=== PATIENT | female | born 1995 | race Caucasian/White ===

== ENCOUNTER 2022-08-14 12:58 | Inpatient (IN) | payer BC ==
[2022-08-14 14:25] VITALS: BMI 33.2
[2022-08-14] MEDS ORDERED: Ondansetron PF 4 MG/2 ML Vial ONE (14:30)
[2022-08-14] MEDS ORDERED: Ondansetron PF 4 MG/2 ML Vial IVP SCH (14:30)
[2022-08-14 15:33] LABS: #Monocytes 0.8 10x3/uL (0.0-1.1); #Neutrophils 12.4 10x3/uL (1.5-8.4); %Basophils 0.1 % (0.0-2.0); %Eosinophils 0.1 % (0.0-6.0); %Lymphocytes 4.6 % (18.0-47.0); %Monocytes 5.9 % (0.0-10.0); %Neutrophils 88.7 % (40.0-75.0); Hemoglobin 10.3 g/dL (12.0-15.5); Mean Corpuscular HGB CONC 31.9 g/dL (32.0-36.0); Mean Corpuscular Hemoglobin 24.6 pg (27.0-33.0); Mean Corpuscular Volume 77.3 fl (81.6-98.3); Mean Platelet Volume 9.6 fl (7.4-10.4); Platelet Count 193 10x3/uL (150-450); RBC Distribution Width 14.7 % (11.5-14.5); Red Blood Cell (RBC) Count 4.18 10x6/uL (3.90-5.03)
[2022-08-14 15:48] LABS: Bilirubin Neg (Negative); Blood, Urine Negative (Negative); Clarity Sl. Cloudy (Clear); Glucose, Urine (Dipstick) Normal (Negative); Ketone, Urine 150 mg/dL (Negative); Leukocyte 25 (Negative); Nitrite Negative (Negative); Protein, Urine (Dipstick) 30 mg/dl (Neg-Trace); Specific Gravity, Urine 1.015 (1.005-1.030); Urobilinogen Normal mg/dL (Less than 2); pH, Urine 6.5 (5.0-9.0)
[2022-08-14 15:51] LABS: Urine Culture Reflex No No
[2022-08-14 15:55] LABS: ALT (SGPT) 9 U/L (8-55); AST (SGOT) 17 U/L (5-34); Albumin 3.2 g/dL (3.5-5.0); Alkaline Phosphatase 101 U/L (40-110); Anion Gap 14 mmol/L (10-20); BUN (Urea Nitrogen) 8 mg/dL (7.0-18.7); Bilirubin, Total 0.4 mg/dL (0.2-1.2); Calc. Creatinine Clearance 203 mL/min (70-130); Calcium 8.5 mg/dL (7.8-10.44); Carbon Dioxide 19 mmol/L (22-29); Chloride 107 mmol/L (98-107); Estimated GFR 126; Globulin 3.1 g/dL (2.4-3.5); Glucose 81 mg/dL (70-105); Lipase 17 U/L (8-78); Potassium 3.6 mmol/L (3.5-5.1); Protein, Total 6.3 g/dL (6.0-8.3); Sodium 136 mmol/L (136-145)
[2022-08-14 15:56] LABS: Bacteria/HPF 2+ HPF (None Seen); Renal Epithelial 0-3 HPF (None Seen)
[2022-08-14 15:57] LABS: Other Microscopic Description SEE COMMENTS
[2022-08-14] MEDS ORDERED: cefTRIAXone\\ROCEPHIN 1 GM in Sodium Chloride 0.9% 100 ML IVPB SCH (16:30)
[2022-08-14] MEDS: Acetaminophen 325 MG TAB PO PRN (16:59)
[2022-08-14] MEDS ORDERED: Terbutaline Sulfate 1 MG/ML VIAL ONE (17:37)
[2022-08-14] MEDS ORDERED: Famotidine/PF 20 mg/2ml Vial SLOW IVP PRN (17:44)
[2022-08-14] MEDS ORDERED: Terbutaline Sulfate 1 MG/ML VIAL SC SCH ×2 (17:45→19:30)
[2022-08-14] MEDS ORDERED: Morphine 4 MG/ML VIAL SLOW IVP PRN (17:47)
[2022-08-14 18:21] LABS: FFN Internal QC Analyzer PASS (PASS); FFN Internal QC Cassette PASS (PASS); Fetal Fibronectin Negative (Negative)
[2022-08-14] MEDS: Lactated Ringer's 1,000 ML IV SCH (21:50)
[2022-08-15] MEDS ORDERED: hydrALAZINE 20 MG/ML VIAL SLOW IVP PRN (00:46)
[2022-08-15] MEDS ORDERED: Acetaminophen 500 MG TAB PO PRN (00:46)
[2022-08-15] MEDS ORDERED: Ondansetron PF 4 MG/2 ML Vial IVP PRN (00:46)
[2022-08-15 02:11] LABS: Hemoglobin 8.8 g/dL (12.0-15.5); Mean Corpuscular HGB CONC 32.2 g/dL (32.0-36.0); Mean Corpuscular Hemoglobin 24.9 pg (27.0-33.0); Mean Corpuscular Volume 77.3 fl (81.6-98.3); Platelet Count 170 10x3/uL (150-450); RBC Distribution Width 14.6 % (11.5-14.5); Red Blood Cell (RBC) Count 3.53 10x6/uL (3.90-5.03); White Blood Cell (WBC) Count 10.2 10x3/uL (3.5-10.5)
[2022-08-15 02:41] LABS: ALT (SGPT) 9 U/L (8-55); AST (SGOT) 12 U/L (5-34); Albumin 2.7 g/dL (3.5-5.0); Alkaline Phosphatase 86 U/L (40-110); Anion Gap 14 mmol/L (10-20); BUN (Urea Nitrogen) 5 mg/dL (7.0-18.7); Bilirubin, Total 0.3 mg/dL (0.2-1.2); Calc. Creatinine Clearance 210 mL/min (70-130); Calcium 7.7 mg/dL (7.8-10.44); Carbon Dioxide 17 mmol/L (22-29); Chloride 109 mmol/L (98-107); Estimated GFR 127; Globulin 2.4 g/dL (2.4-3.5); Glucose 114 mg/dL (70-105); Potassium 3.2 mmol/L (3.5-5.1); Protein, Total 5.1 g/dL (6.0-8.3); Sodium 137 mmol/L (136-145)
[2022-08-15 02:52] LABS: Syphilis Antibody Nonreactive (Nonreactive); Syphilis Antibody Index 0.03 S/CO (<1.00 Non-Reactive)
[2022-08-15 02:53] LABS: HBSAg Index 0.15 S/CO (0-0.99); Hep B Surf Ag Non-Reactive S/CO (NonReactive)
[2022-08-15 03:02] LABS: SARS-CoV-2 NAA Rapid Test Not Detected (NotDetected)
[2022-08-15] MEDS: Lactated Ringer's 1,000 ML IV SCH ×3 (07:16→08:58)
[2022-08-15] MEDS: Acetaminophen 325 MG TAB PO PRN ×2 (08:56→14:35)
[2022-08-15] MEDS ORDERED: cefTRIAXone\\ROCEPHIN 1 GM in Sodium Chloride 0.9% 100 ML IVPB SCH (16:30)
[2022-08-16] MEDS: Lactated Ringer's 1,000 ML IV SCH ×3 (08:22→08:25)
[2022-08-16] MEDS: Acetaminophen 325 MG TAB PO PRN (11:54)
[2022-08-16] MEDS ORDERED: Iron Sucrose Complex 500 MG in Sodium Chloride 0.9% 250 ML 250 ML IVPB SCH (12:45)
[2022-08-16] MEDS ORDERED: Acetaminophen 500 MG TAB PO SCH (12:45)
[2022-08-16 18:48] VITALS: BP 122/65; TEMP 98.5
== END 2022-08-16 18:00 | disposition home or self-care (01) | DRG 833 ==
LOC: CSHLD/OP 12:58 → CSHLD 21:34 → OBSVTOIN 08-15 00:46 → CSHANTE 08-15 01:40
PROVIDERS: ADMIT Student in an Organized Health Care Education/Training Program; ATTEND Student in an Organized Health Care Education/Training Program
DX: O99.891 Other specified diseases and conditions complicating pregnancy (principal); Z3A.31 31 weeks gestation of pregnancy; O30.043 Twin pregnancy, dichorionic/diamniotic, third trimester; E86.0 Dehydration; O99.283 Endocrine, nutritional and metabolic diseases complicating pregnancy, third trimester; Z20.822 Contact with and (suspected) exposure to COVID-19; Z87.440 Personal history of urinary (tract) infections; Z87.442 Personal history of urinary calculi; Z79.899 Other long term (current) drug therapy; N20.0 Calculus of kidney; D50.9 Iron deficiency anemia, unspecified; O99.013 Anemia complicating pregnancy, third trimester
CPT/HCPCS: 36415; 76770; 76819; 80053; 81001; 82731; 83690; 85025; 85027; 86780; 86850; 86900; 86901; 87086; 87340; 99285; J0696; J1756; J2270; J2405; J3105; J3490; J7050; J7120; U0002

== ENCOUNTER 2022-08-18 20:15 | Inpatient (IN) | payer BC ==
[2022-08-18] MEDS ORDERED: hydrALAZINE 20 MG/ML VIAL SLOW IVP PRN ×2 (20:43→21:41)
[2022-08-18] MEDS ORDERED: diphenhydrAMINE 25 MG CAP PO SCH (21:00)
[2022-08-18 21:09] VITALS: BMI 32.8
[2022-08-18] MEDS ORDERED: NIFEdipine XL 30 MG TAB PO SCH (21:15)
[2022-08-18] MEDS: Clindamycin 150 MG CAP PO SCH (21:23)
[2022-08-18] MEDS ORDERED: Betamet Acet/Betamet Na Ph 30 MG/5 ML VIAL IM SCH (21:30)
[2022-08-18] MEDS ORDERED: Magnesium Sulfate 20 gm/500 ml 20 GM/500 ML BAG ONE (21:32)
[2022-08-18] MEDS ORDERED: Betamet Acet/Betamet Na Ph 30 MG/5 ML VIAL ONE (21:32)
[2022-08-18] MEDS ORDERED: Ondansetron PF 4 MG/2 ML Vial IVP PRN (21:41)
[2022-08-18] MEDS ORDERED: Promethazine HCl 25 MG/ML VIAL IM PRN (21:41)
[2022-08-18] MEDS ORDERED: Lidocaine 1% (PF) 30 ML VIAL SC PRN (21:41)
[2022-08-18] MEDS ORDERED: Magnesium Sulfate 20 gm/500 ml 20 GM/500 ML BAG IVPB SCH (21:45)
[2022-08-18] MEDS ORDERED: Lactated Ringer's 1,000 ML IV SCH (21:45)
[2022-08-19] MEDS: Clindamycin 150 MG CAP PO SCH ×3 (06:51→21:38)
[2022-08-19] MEDS: NIFEdipine 10 MG CAP PO PRN ×2 (16:53→22:57)
[2022-08-19 16:54] LABS: ALT (SGPT) 17 U/L (8-55); AST (SGOT) 19 U/L (5-34); Alkaline Phosphatase 111 U/L (40-110); Anion Gap 15 mmol/L (10-20); BUN (Urea Nitrogen) 6 mg/dL (7.0-18.7); Bilirubin, Total 0.2 mg/dL (0.2-1.2); Calc. Creatinine Clearance 188 mL/min (70-130); Calcium 7.8 mg/dL (7.8-10.44); Carbon Dioxide 16 mmol/L (22-29); Chloride 108 mmol/L (98-107); Estimated GFR 124; Globulin 2.6 g/dL (2.4-3.5); Glucose 148 mg/dL (70-105); Potassium 3.3 mmol/L (3.5-5.1); Protein, Total 5.6 g/dL (6.0-8.3); Sodium 136 mmol/L (136-145)
[2022-08-19] MEDS ORDERED: Potassium Bicarbonate/Cit Ac 20 MEQ TAB PO SCH (17:15)
[2022-08-19] MEDS ORDERED: cefTRIAXone\\ROCEPHIN 2 GM in Sodium Chloride 0.9% 100 ML IVPB SCH ×2 (17:15→21:00)
[2022-08-19 17:32] LABS: #Monocytes 1.5 10x3/uL (0.0-1.1); #Neutrophils 11.7 10x3/uL (1.5-8.4); %Basophils 0.1 % (0.0-2.0); %Eosinophils 0.1 % (0.0-6.0); %Lymphocytes 13.1 % (18.0-47.0); %Monocytes 9.4 % (0.0-10.0); %Neutrophils 75.6 % (40.0-75.0); Hemoglobin 9.6 g/dL (12.0-15.5); Mean Corpuscular Hemoglobin 24.7 pg (27.0-33.0); Mean Corpuscular Volume 77.3 fl (81.6-98.3); Mean Platelet Volume 9.3 fl (7.4-10.4); Platelet Count 214 10x3/uL (150-450); RBC Distribution Width 15.4 % (11.5-14.5); Red Blood Cell (RBC) Count 3.88 10x6/uL (3.90-5.03); White Blood Cell (WBC) Count 15.5 10x3/uL (3.5-10.5)
[2022-08-19] MEDS: Acetaminophen 325 MG TAB PO PRN (19:58)
[2022-08-19] MEDS: Enoxaparin Sodium 100 MG/ML SYRINGE SC SCH (20:00)
[2022-08-19] MEDS: Betamet Acet/Betamet Na Ph 30 MG/5 ML VIAL IM SCH (21:44)
[2022-08-20] MEDS: NIFEdipine 10 MG CAP PO PRN (04:47)
[2022-08-20 05:01] LABS: #Monocytes 0.5 10x3/uL (0.0-1.1); #Neutrophils 10.2 10x3/uL (1.5-8.4); %Basophils 0.2 % (0.0-2.0); %Lymphocytes 13.9 % (18.0-47.0); %Monocytes 3.8 % (0.0-10.0); %Neutrophils 80.2 % (40.0-75.0); Hemoglobin 9.6 g/dL (12.0-15.5); Mean Corpuscular Hemoglobin 24.3 pg (27.0-33.0); Mean Corpuscular Volume 78.5 fl (81.6-98.3); Platelet Count 215 10x3/uL (150-450); RBC Distribution Width 15.4 % (11.5-14.5); Red Blood Cell (RBC) Count 3.95 10x6/uL (3.90-5.03); White Blood Cell (WBC) Count 12.8 10x3/uL (3.5-10.5)
[2022-08-20 05:12] LABS: ALT (SGPT) 19 U/L (8-55); AST (SGOT) 23 U/L (5-34); Alkaline Phosphatase 101 U/L (40-110); Anion Gap 14 mmol/L (10-20); BUN (Urea Nitrogen) 7 mg/dL (7.0-18.7); Bilirubin, Total 0.1 mg/dL (0.2-1.2); Calc. Creatinine Clearance 194 mL/min (70-130); Calcium 7.9 mg/dL (7.8-10.44); Carbon Dioxide 19 mmol/L (22-29); Chloride 110 mmol/L (98-107); Estimated GFR 125; Globulin 3.1 g/dL (2.4-3.5); Glucose 130 mg/dL (70-105); Magnesium 3.5 mg/dL (1.6-2.6); Potassium 3.7 mmol/L (3.5-5.1); Protein, Total 6.1 g/dL (6.0-8.3); Sodium 139 mmol/L (136-145)
[2022-08-20] MEDS: Clindamycin 150 MG CAP PO SCH ×3 (06:29→21:08)
[2022-08-20] MEDS: Acetaminophen 325 MG TAB PO PRN (07:25)
[2022-08-20] MEDS: Enoxaparin Sodium 100 MG/ML SYRINGE SC SCH ×2 (07:47→20:41)
[2022-08-20] MEDS ORDERED: Iopamidol 370 76% 100 ML VIAL ONE (11:06)
[2022-08-20] MEDS ORDERED: hydrOXYzine 25 MG TAB PO PRN (16:15)
[2022-08-20] MEDS ORDERED: cefTRIAXone\\ROCEPHIN 2 GM in Sodium Chloride 0.9% 100 ML IVPB SCH (18:00)
[2022-08-20] MEDS ORDERED: diphenhydrAMINE 25 MG CAP PO PRN (18:51)
[2022-08-21] MEDS ORDERED: Lactated Ringer's 1,000 ML IV SCH (00:15)
[2022-08-21] MEDS: NIFEdipine 10 MG CAP PO PRN (00:16)
[2022-08-21] MEDS: Betamet Acet/Betamet Na Ph 30 MG/5 ML VIAL IM SCH (01:51)
[2022-08-21] MEDS: Clindamycin 150 MG CAP PO SCH ×2 (05:11→13:50)
[2022-08-21] MEDS: Enoxaparin Sodium 100 MG/ML SYRINGE SC SCH (08:12)
[2022-08-21 11:34] VITALS: BP 117/64; TEMP 98.8
== END 2022-08-21 15:30 | disposition home or self-care (01) | DRG 831 ==
LOC: CSHLD/OP 20:15 → CSHLD 21:42 → UNDOADMIN 08-19 01:49 → CSHANTE 08-20 17:40
PROVIDERS: ADMIT Student in an Organized Health Care Education/Training Program; ATTEND Student in an Organized Health Care Education/Training Program
DX: O98.813 Other maternal infectious and parasitic diseases complicating pregnancy, third trimester (principal); O22.33 Deep phlebothrombosis in pregnancy, third trimester; E87.20 Acidosis, unspecified; L03.113 Cellulitis of right upper limb; I82.621 Acute embolism and thrombosis of deep veins of right upper extremity; O22.23 Superficial thrombophlebitis in pregnancy, third trimester; Z3A.28 28 weeks gestation of pregnancy; Z90.89 Acquired absence of other organs; O30.043 Twin pregnancy, dichorionic/diamniotic, third trimester; E87.6 Hypokalemia; O99.283 Endocrine, nutritional and metabolic diseases complicating pregnancy, third trimester; Z88.2 Allergy status to sulfonamides; Z88.8 Allergy status to other drugs, medicaments and biological substances; I80.02 Phlebitis and thrombophlebitis of superficial vessels of left lower extremity
CPT/HCPCS: 36415; 71275; 80053; 83735; 84484; 85025; 93005; 93010; 99285; J0696; J0702; J1650; J3475; J3490; J7120; Q9967

== ENCOUNTER 2022-08-25 22:56 | Emergency (ER) | payer BC ==
[2022-08-26 00:47] LABS: ALT (SGPT) 14 U/L (8-55); AST (SGOT) 16 U/L (5-34); Albumin 3.4 g/dL (3.5-5.0); Alkaline Phosphatase 111 U/L (40-110); Anion Gap 15 mmol/L (10-20); BUN (Urea Nitrogen) 7 mg/dL (7.0-18.7); Bilirubin, Total 0.2 mg/dL (0.2-1.2); Calc. Creatinine Clearance 0 mL/min (70-130); Calcium 9.4 mg/dL (7.8-10.44); Carbon Dioxide 17 mmol/L (22-29); Chloride 107 mmol/L (98-107); Estimated GFR 127; Globulin 3.5 g/dL (2.4-3.5); Glucose 114 mg/dL (70-105); Potassium 3.6 mmol/L (3.5-5.1); Protein, Total 6.9 g/dL (6.0-8.3); Sodium 135 mmol/L (136-145)
[2022-08-26 00:51] LABS: #Eosinphils 0.1 10x3/uL (0.0-0.5); #Monocytes 0.9 10x3/uL (0.0-1.1); #Neutrophils 8.3 10x3/uL (1.5-8.4); %Basophils 0.2 % (0.0-2.0); %Eosinophils 0.9 % (0.0-6.0); %Lymphocytes 24.8 % (18.0-47.0); %Monocytes 7.3 % (0.0-10.0); %Neutrophils 65.1 % (40.0-75.0); Mean Corpuscular HGB CONC 31.6 g/dL (32.0-36.0); Mean Corpuscular Hemoglobin 24.8 pg (27.0-33.0); Mean Corpuscular Volume 78.6 fl (81.6-98.3); Mean Platelet Volume 9.6 fl (7.4-10.4); Platelet Count 207 10x3/uL (150-450); RBC Distribution Width 17.6 % (11.5-14.5); Red Blood Cell (RBC) Count 4.43 10x6/uL (3.90-5.03); White Blood Cell (WBC) Count 12.8 10x3/uL (3.5-10.5)
== END 2022-08-26 02:45 | disposition home or self-care (01) ==
LOC: CSHERS 22:56
DX: O99.891 Other specified diseases and conditions complicating pregnancy (principal); R59.0 Localized enlarged lymph nodes; Z3A.30 30 weeks gestation of pregnancy
CPT/HCPCS: 80053; 83880; 84484; 85025; 93005

== ENCOUNTER 2022-09-08 20:02 | Day surgery (SDC) | payer BC ==
[2022-09-08 20:31] VITALS: BMI 34.0
[2022-09-08] MEDS ORDERED: hydrALAZINE 20 MG/ML VIAL SLOW IVP PRN (21:25)
[2022-09-08] MEDS ORDERED: Promethazine HCl 12.5 MG, Admixture Fee 1 EACH in Sodium Chloride 0.9% 50 ML IVPB PRN (21:26)
[2022-09-08] MEDS ORDERED: Lactated Ringer's 1,000 ML IV SCH (21:45)
[2022-09-08 21:55] LABS: Fetal Membranes Rupture No Membranes Rupture (No Rupture)
[2022-09-08 21:59] LABS: Bilirubin Neg (Negative); Blood, Urine Negative (Negative); CAUTI Indications for Culture Pregnancy; Clarity Clear (Clear); Glucose, Urine (Dipstick) Normal (Negative); Ketone, Urine Negative (Negative); Leukocyte 100 (Negative); Nitrite Negative (Negative); Protein, Urine (Dipstick) 15 mg/dl (Neg-Trace); Urobilinogen Normal mg/dL (Less than 2)
[2022-09-08 22:03] LABS: Urine Culture Reflex Yes Yes
[2022-09-08 22:14] LABS: Bacteria/HPF Rare-Few HPF (None Seen); RBC/HPF 0-3 HPF (0-3); Squamous Epithelial 0-3 HPF (0-3)
[2022-09-08] MEDS ORDERED: CEFAZOLIN 1 GM in Sodium Chloride 0.9% 100 ML IVPB SCH (23:30)
[2022-09-09 01:10] LABS: #Eosinphils 0.1 10x3/uL (0.0-0.5); #Monocytes 0.7 10x3/uL (0.0-1.1); #Neutrophils 5.7 10x3/uL (1.5-8.4); %Basophils 0.3 % (0.0-2.0); %Eosinophils 1.1 % (0.0-6.0); %Lymphocytes 29.2 % (18.0-47.0); %Monocytes 7.4 % (0.0-10.0); %Neutrophils 61.1 % (40.0-75.0); Hemoglobin 10.4 g/dL (12.0-15.5); Mean Corpuscular HGB CONC 32.4 g/dL (32.0-36.0); Mean Corpuscular Hemoglobin 25.3 pg (27.0-33.0); Mean Corpuscular Volume 78.1 fl (81.6-98.3); Mean Platelet Volume 9.8 fl (7.4-10.4); Platelet Count 151 10x3/uL (150-450); RBC Distribution Width 16.7 % (11.5-14.5); Red Blood Cell (RBC) Count 4.11 10x6/uL (3.90-5.03); White Blood Cell (WBC) Count 9.3 10x3/uL (3.5-10.5)
[2022-09-09 01:19] LABS: ALT (SGPT) 8 U/L (8-55); AST (SGOT) 14 U/L (5-34); Albumin 2.8 g/dL (3.5-5.0); Alkaline Phosphatase 113 U/L (40-110); Anion Gap 12 mmol/L (10-20); BUN (Urea Nitrogen) 9 mg/dL (7.0-18.7); Bilirubin, Total 0.3 mg/dL (0.2-1.2); Calc. Creatinine Clearance 218 mL/min (70-130); Calcium 8.7 mg/dL (7.8-10.44); Carbon Dioxide 19 mmol/L (22-29); Chloride 107 mmol/L (98-107); Estimated GFR 127; Globulin 2.9 g/dL (2.4-3.5); Glucose 72 mg/dL (70-105); Potassium 3.7 mmol/L (3.5-5.1); Protein, Total 5.7 g/dL (6.0-8.3); Sodium 134 mmol/L (136-145)
== END 2022-09-09 05:15 | disposition home or self-care (01) ==
LOC: CSHLD/OP 20:02
PROVIDERS: ATTEND Student in an Organized Health Care Education/Training Program
DX: O47.03 False labor before 37 completed weeks of gestation, third trimester (principal); Z3A.36 36 weeks gestation of pregnancy; Z88.2 Allergy status to sulfonamides; Z88.6 Allergy status to analgesic agent; Z91.041 Radiographic dye allergy status
CPT/HCPCS: 36415; 76770; 76810; 80053; 81001; 84112; 85025; 87086; 96360; 96361; 99285; J0690; J2550; J3490

== ENCOUNTER 2022-09-15 12:43 | Day surgery (SDC) | payer BC ==
[2022-09-15 13:30] VITALS: BMI 35.2
[2022-09-15] MEDS ORDERED: hydrALAZINE 20 MG/ML VIAL SLOW IVP PRN (13:31)
[2022-09-15 14:15] LABS: #Eosinphils 0.1 10x3/uL (0.0-0.5); #Monocytes 0.7 10x3/uL (0.0-1.1); #Neutrophils 5.3 10x3/uL (1.5-8.4); %Basophils 0.2 % (0.0-2.0); %Eosinophils 1.3 % (0.0-6.0); %Lymphocytes 24.2 % (18.0-47.0); %Neutrophils 64.5 % (40.0-75.0); Hemoglobin 10.1 g/dL (12.0-15.5); Mean Corpuscular HGB CONC 32.7 g/dL (32.0-36.0); Mean Corpuscular Hemoglobin 25.6 pg (27.0-33.0); Mean Corpuscular Volume 78.2 fl (81.6-98.3); Mean Platelet Volume 10.1 fl (7.4-10.4); Platelet Count 149 10x3/uL (150-450); RBC Distribution Width 16.7 % (11.5-14.5); Red Blood Cell (RBC) Count 3.95 10x6/uL (3.90-5.03); White Blood Cell (WBC) Count 8.2 10x3/uL (3.5-10.5)
[2022-09-15 14:21] LABS: ALT (SGPT) 7 U/L (8-55); AST (SGOT) 17 U/L (5-34); Albumin 2.8 g/dL (3.5-5.0); Alkaline Phosphatase 130 U/L (40-110); Anion Gap 11 mmol/L (10-20); BUN (Urea Nitrogen) 11 mg/dL (7.0-18.7); Bilirubin, Total 0.1 mg/dL (0.2-1.2); Calc. Creatinine Clearance 177 mL/min (70-130); Calcium 8.9 mg/dL (7.8-10.44); Carbon Dioxide 21 mmol/L (22-29); Chloride 108 mmol/L (98-107); Estimated GFR 113; Globulin 2.9 g/dL (2.4-3.5); Glucose 78 mg/dL (70-105); Potassium 4.4 mmol/L (3.5-5.1); Protein, Total 5.7 g/dL (6.0-8.3); Sodium 136 mmol/L (136-145)
[2022-09-15 14:29] LABS: Bilirubin Neg (Negative); Blood, Urine Negative (Negative); CAUTI Indications for Culture Pregnancy; Clarity Clear (Clear); Glucose, Urine (Dipstick) Normal (Negative); Ketone, Urine Negative (Negative); Leukocyte 25 (Negative); Nitrite Negative (Negative); Protein, Urine (Dipstick) Negative (Neg-Trace); Specific Gravity, Urine 1.005 (1.005-1.030); Urobilinogen Normal mg/dL (Less than 2)
[2022-09-15 14:35] LABS: Urine Culture Reflex Yes Yes
[2022-09-15 14:36] LABS: Bacteria/HPF None Seen HPF (None Seen); RBC/HPF 0-3 HPF (0-3); Squamous Epithelial 0-3 HPF (0-3); WBC/HPF 0-3 HPF (0-3)
[2022-09-15 14:39] LABS: Creatinine, Urine 53.31 mg/dL (47-110)
== END 2022-09-15 14:30 | disposition home or self-care (01) ==
LOC: CSHLD/OP 12:43
PROVIDERS: ATTEND Student in an Organized Health Care Education/Training Program
DX: O30.043 Twin pregnancy, dichorionic/diamniotic, third trimester (principal); Z3A.32 32 weeks gestation of pregnancy; O16.3 Unspecified maternal hypertension, third trimester; Z86.718 Personal history of other venous thrombosis and embolism; Z79.01 Long term (current) use of anticoagulants; Z88.2 Allergy status to sulfonamides; Z88.5 Allergy status to narcotic agent; Z88.8 Allergy status to other drugs, medicaments and biological substances; Z98.890 Other specified postprocedural states
CPT/HCPCS: 36415; 80053; 81001; 82570; 84156; 85025; 87086; 99283

== ENCOUNTER 2022-09-19 15:49 | Inpatient (IN) | payer BC ==
[2022-09-19 16:28] VITALS: BMI 35.8
[2022-09-19] MEDS ORDERED: Promethazine HCl 25 MG/ML VIAL IM PRN (16:35)
[2022-09-19] MEDS ORDERED: Zolpidem Tartrate 5 MG TAB PO PRN (16:35)
[2022-09-19] MEDS ORDERED: hydrALAZINE 20 MG/ML VIAL SLOW IVP PRN (16:35)
[2022-09-19] MEDS ORDERED: Docusate 100 MG CAP PO PRN (16:35)
[2022-09-19] MEDS ORDERED: Acetaminophen 500 MG TAB PO PRN (16:35)
[2022-09-19] MEDS ORDERED: Ondansetron PF 4 MG/2 ML Vial IVP PRN (16:35)
[2022-09-19] MEDS ORDERED: Lactated Ringer's 1,000 ML IV SCH (16:45)
[2022-09-19 17:33] LABS: Hemoglobin 10.4 g/dL (12.0-15.5); Mean Corpuscular HGB CONC 31.9 g/dL (32.0-36.0); Mean Corpuscular Hemoglobin 24.7 pg (27.0-33.0); Mean Corpuscular Volume 77.4 fl (81.6-98.3); Mean Platelet Volume 10.4 fl (7.4-10.4); Platelet Count 134 10x3/uL (150-450); Red Blood Cell (RBC) Count 4.21 10x6/uL (3.90-5.03); White Blood Cell (WBC) Count 9.5 10x3/uL (3.5-10.5)
[2022-09-19 17:48] LABS: ALT (SGPT) 9 U/L (8-55); AST (SGOT) 17 U/L (5-34); Albumin 2.8 g/dL (3.5-5.0); Alkaline Phosphatase 151 U/L (40-110); Anion Gap 14 mmol/L (10-20); BUN (Urea Nitrogen) 15 mg/dL (7.0-18.7); Bilirubin, Total 0.2 mg/dL (0.2-1.2); Calc. Creatinine Clearance 208 mL/min (70-130); Calcium 8.6 mg/dL (7.8-10.44); Carbon Dioxide 17 mmol/L (22-29); Chloride 107 mmol/L (98-107); Estimated GFR 124; Globulin 2.7 g/dL (2.4-3.5); Glucose 95 mg/dL (70-105); Potassium 4.1 mmol/L (3.5-5.1); Protein, Total 5.5 g/dL (6.0-8.3); Sodium 134 mmol/L (136-145)
[2022-09-19 18:06] LABS: HBSAg Index 0.16 S/CO (0-0.99); Hep B Surf Ag Non-Reactive S/CO (NonReactive)
[2022-09-19 18:07] LABS: Syphilis Antibody Nonreactive (Nonreactive); Syphilis Antibody Index 0.03 S/CO (<1.00 Non-Reactive)
[2022-09-19 19:43] LABS: Creatinine, Urine 107.1 mg/dL (47-110)
[2022-09-19 20:07] LABS: SARS-CoV-2 NAA Rapid Test Not Detected (NotDetected)
[2022-09-19] MEDS ORDERED: Cyclobenzaprine 10 MG TAB PO PRN (20:25)
[2022-09-19] MEDS ORDERED: Butorphanol Tartrate 1 MG/ML VIAL SLOW IVP PRN (20:25)
[2022-09-19] MEDS ORDERED: busPIRone HCl 5 MG TAB PO SCH (21:00)
[2022-09-20] MEDS ORDERED: Prenatal Vitamin 1 TAB PO SCH (09:00)
[2022-09-20] MEDS ORDERED: Sertraline 100 MG TAB PO SCH (09:00)
== END 2022-09-20 17:05 | disposition home or self-care (01) | DRG 831 ==
LOC: CSHLD 15:49
PROVIDERS: ADMIT Student in an Organized Health Care Education/Training Program; ATTEND Student in an Organized Health Care Education/Training Program
DX: O30.043 Twin pregnancy, dichorionic/diamniotic, third trimester (principal); O22.33 Deep phlebothrombosis in pregnancy, third trimester; I82.629 Acute embolism and thrombosis of deep veins of unspecified upper extremity; O99.343 Other mental disorders complicating pregnancy, third trimester; O40.3XX2 Polyhydramnios, third trimester, fetus 2; F32.A Depression, unspecified; Z98.890 Other specified postprocedural states; Z88.5 Allergy status to narcotic agent; Z88.2 Allergy status to sulfonamides; Z88.8 Allergy status to other drugs, medicaments and biological substances; Z91.09 Other allergy status, other than to drugs and biological substances; Z3A.33 33 weeks gestation of pregnancy; Z20.822 Contact with and (suspected) exposure to COVID-19; O34.211 Maternal care for low transverse scar from previous cesarean delivery; Z79.899 Other long term (current) drug therapy
CPT/HCPCS: 36415; 80053; 82570; 84156; 85027; 86780; 86850; 86900; 86901; 87340; J7120; U0002

== ENCOUNTER 2022-09-22 19:16 | Day surgery (SDC) | payer BC ==
[2022-09-22 20:05] VITALS: BMI 35.5
[2022-09-22] MEDS ORDERED: hydrALAZINE 20 MG/ML VIAL SLOW IVP PRN (20:19)
[2022-09-22 20:50] LABS: Bilirubin Neg (Negative); Blood, Urine 10 (Negative); CAUTI Indications for Culture Pregnancy; Clarity Cloudy (Clear); Glucose, Urine (Dipstick) Normal (Negative); Ketone, Urine 5 mg/dL (Negative); Leukocyte 500 (Negative); Nitrite Positive (Negative); Protein, Urine (Dipstick) 100 mg/dl (Neg-Trace); Specific Gravity, Urine 1.015 (1.005-1.030); Urobilinogen Normal mg/dL (Less than 2); pH, Urine 6.5 (5.0-9.0)
[2022-09-22 20:53] LABS: Urine Culture Reflex Yes Yes
[2022-09-22 20:58] LABS: RBC/HPF 0-3 HPF (0-3); WBC/HPF 21-50 HPF (0-3)
[2022-09-22 20:59] LABS: Bacteria/HPF 3+ HPF (None Seen)
[2022-09-22] MEDS ORDERED: cefTRIAXone\\ROCEPHIN 1 GM VIAL IM SCH (22:00)
== END 2022-09-22 22:16 | disposition home or self-care (01) ==
LOC: CSHLD/OP 19:16
PROVIDERS: ATTEND Student in an Organized Health Care Education/Training Program
DX: O13.3 Gestational [pregnancy-induced] hypertension without significant proteinuria, third trimester (principal); O60.03 Preterm labor without delivery, third trimester; O30.043 Twin pregnancy, dichorionic/diamniotic, third trimester; O24.419 Gestational diabetes mellitus in pregnancy, unspecified control; O99.891 Other specified diseases and conditions complicating pregnancy; R30.0 Dysuria; Z3A.33 33 weeks gestation of pregnancy; O99.013 Anemia complicating pregnancy, third trimester; D64.9 Anemia, unspecified; Z86.718 Personal history of other venous thrombosis and embolism; Z79.01 Long term (current) use of anticoagulants; Z79.899 Other long term (current) drug therapy; Z88.2 Allergy status to sulfonamides; Z88.5 Allergy status to narcotic agent; Z88.8 Allergy status to other drugs, medicaments and biological substances; Z98.890 Other specified postprocedural states
CPT/HCPCS: 81001; 84156; 87077; 87086; 96372; 99283; J0696

== ENCOUNTER 2022-09-25 12:31 | Inpatient (IN) | payer BC ==
[2022-09-25] MEDS ORDERED: Famotidine/PF 20 mg/2ml Vial SLOW IVP PRN (15:17)
[2022-09-25] MEDS ORDERED: Ondansetron PF 4 MG/2 ML Vial IVP PRN (15:17)
[2022-09-25] MEDS ORDERED: Butorphanol Tartrate 1 MG/ML VIAL SLOW IVP PRN (15:17)
[2022-09-25] MEDS ORDERED: Zolpidem Tartrate 5 MG TAB PO PRN (15:17)
[2022-09-25] MEDS ORDERED: Promethazine HCl 25 MG/ML VIAL IM PRN (15:17)
[2022-09-25] MEDS ORDERED: Bicitra 30 ML UDCUP PO PRN (15:17)
[2022-09-25] MEDS ORDERED: hydrALAZINE 20 MG/ML VIAL SLOW IVP PRN ×3 (15:17→15:19)
[2022-09-25] MEDS ORDERED: Labetalol HCl 100 MG/20 ML VIAL SLOW IVP PRN ×2 (15:19)
[2022-09-25] MEDS ORDERED: Lorazepam 2 MG/ML VIAL SLOW IVP PRN (15:19)
[2022-09-25] MEDS ORDERED: Calcium Gluc 4.6 MEQ/10 ML (100 MG/ML) SLOW IVP PRN (15:19)
[2022-09-25 15:27] VITALS: BMI 37.1
[2022-09-25] MEDS ORDERED: Heparin 10,000 UNITS/1 ML VIAL SC SCH (15:30)
[2022-09-25] MEDS ORDERED: CEFAZOLIN 2 GM in Sodium Chloride 0.9% 100 ML IVPB SCH (15:30)
[2022-09-25 16:33] LABS: ALT (SGPT) 10 U/L (8-55); AST (SGOT) 17 U/L (5-34); Albumin 2.6 g/dL (3.5-5.0); Alkaline Phosphatase 149 U/L (40-110); Anion Gap 11 mmol/L (10-20); BUN (Urea Nitrogen) 26 mg/dL (7.0-18.7); Bilirubin, Total 0.1 mg/dL (0.2-1.2); Calc. Creatinine Clearance 187 mL/min (70-130); Calcium 8.1 mg/dL (7.8-10.44); Carbon Dioxide 20 mmol/L (22-29); Chloride 108 mmol/L (98-107); Estimated GFR 113; Globulin 2.9 g/dL (2.4-3.5); Glucose 130 mg/dL (70-105); Potassium 4.1 mmol/L (3.5-5.1); Protein, Total 5.5 g/dL (6.0-8.3); Sodium 135 mmol/L (136-145)
[2022-09-25 16:38] LABS: Hemoglobin 9.7 g/dL (12.0-15.5); Mean Corpuscular HGB CONC 31.9 g/dL (32.0-36.0); Mean Corpuscular Hemoglobin 24.8 pg (27.0-33.0); Mean Corpuscular Volume 77.7 fl (81.6-98.3); Mean Platelet Volume 10.4 fl (7.4-10.4); Platelet Count 139 10x3/uL (150-450); Red Blood Cell (RBC) Count 3.91 10x6/uL (3.90-5.03); White Blood Cell (WBC) Count 8.3 10x3/uL (3.5-10.5)
[2022-09-25 16:52] LABS: HBSAg Index 0.14 S/CO (0-0.99); Hep B Surf Ag Non-Reactive S/CO (NonReactive)
[2022-09-25 16:54] LABS: Syphilis Antibody Nonreactive (Nonreactive); Syphilis Antibody Index 0.04 S/CO (<1.00 Non-Reactive)
[2022-09-25] MEDS: Acetaminophen 500 MG TAB PO PRN (18:48)
[2022-09-25 20:57] LABS: Bilirubin Neg (Negative); Blood, Urine 10 (Negative); Clarity Clear (Clear); Glucose, Urine (Dipstick) Normal (Negative); Ketone, Urine Negative (Negative); Leukocyte 25 (Negative); Nitrite Negative (Negative); Protein, Urine (Dipstick) 500 mg/dl (Neg-Trace); Urobilinogen Normal mg/dL (Less than 2)
[2022-09-25 21:04] LABS: Bacteria/HPF 1+ HPF (None Seen); RBC/HPF 0-3 HPF (0-3); Squamous Epithelial 0-3 HPF (0-3)
[2022-09-26] MEDS ORDERED: Lactated Ringer's 1,000 ML IV SCH (04:45)
[2022-09-26] MEDS: Acetaminophen 500 MG TAB PO PRN (04:48)
[2022-09-26] MEDS ORDERED: Fioricet 325/50/40 mg Tablet PO PRN (04:58)
[2022-09-26 06:09] LABS: INR-International Normal Ratio 0.9; PTT 29.9 sec (22.0-33.0); Prothrombin Time 9.4 sec (9.5-12.1)
[2022-09-26] MEDS ORDERED: CEFAZOLIN 2 GM VIAL ONE (09:39)
[2022-09-26] MEDS ORDERED: Famotidine/PF 20 mg/2ml Vial ONE (09:40)
[2022-09-26] MEDS ORDERED: Fentanyl 100 MCG/2 ML VIAL ONE (11:39)
[2022-09-26] MEDS ORDERED: Oxytocin 10 UNITS/ML VIAL ONE (11:39)
[2022-09-26] MEDS ORDERED: Ondansetron PF 4 MG/2 ML Vial ONE (11:39)
[2022-09-26] MEDS ORDERED: Morphine PF 10 MG/10 ML VIAL ONE (11:39)
[2022-09-26] MEDS ORDERED: Phenylephrine 10 MG/ML VIAL ONE (11:39)
[2022-09-26] MEDS ORDERED: Dexamethasone 4 mg/ml Vial ONE (11:39)
[2022-09-26] MEDS ORDERED: diphenhydrAMINE 50 MG/ML VIAL ONE (13:23)
[2022-09-26] MEDS ORDERED: Magnesium Sulfate 20 gm/500 ml 20 GM/500 ML BAG ONE (13:56)
[2022-09-26] MEDS ORDERED: Misoprostol 200 MCG TAB ONE (13:57)
[2022-09-26] MEDS ORDERED: Butorphanol Tartrate 1 MG/ML VIAL ONE (14:09)
[2022-09-26] MEDS ORDERED: Promethazine HCl 25 MG/ML VIAL IM PRN (14:12)
[2022-09-26] MEDS ORDERED: Naloxone HCl 0.4 mg/ml Vial IVP PRN ×2 (14:12)
[2022-09-26] MEDS ORDERED: HYDROmorphone 2 MG/ML VIAL SLOW IVP PRN (14:12)
[2022-09-26] MEDS ORDERED: Naloxone HCl 0.4 mg/ml Vial IV PRN (14:12)
[2022-09-26] MEDS ORDERED: Ondansetron PF 4 MG/2 ML Vial IVP PRN ×2 (14:12→18:45)
[2022-09-26] MEDS ORDERED: Promethazine HCl 25 MG SUPP PR PRN (14:12)
[2022-09-26] MEDS ORDERED: Meperidine HCl/PF 25 MG/ML VIAL SLOW IVP PRN (14:12)
[2022-09-26] MEDS ORDERED: diphenhydrAMINE 50 MG/ML VIAL IVP PRN (14:12)
[2022-09-26] MEDS ORDERED: Ondansetron HCl/PF 4 MG/2 ML Vial IVP PRN (14:12)
[2022-09-26] MEDS ORDERED: Moisturizing Cream (Eucerin) 113 GM JAR TOP PRN (14:12)
[2022-09-26] MEDS ORDERED: Fentanyl 100 MCG/2 ML VIAL SLOW IVP PRN (14:12)
[2022-09-26] MEDS ORDERED: Butorphanol Tartrate 1 MG/ML VIAL IM PRN (14:14)
[2022-09-26] MEDS ORDERED: Ketorolac Tromethamine 30 MG/ML VIAL IVP SCH (14:15)
[2022-09-26] MEDS ORDERED: Communication Order-Pharmacy FS SCH (14:15)
[2022-09-26] MEDS ORDERED: Methylergonovine 0.2 MG/ML VIAL ONE (17:03)
[2022-09-26] MEDS: Ketorolac Tromethamine 30 MG/ML VIAL IVP PRN ×2 (17:10→22:50)
[2022-09-26] MEDS ORDERED: NS w/ Oxytocin 30 units 500 ML ONE (18:44)
[2022-09-26] MEDS ORDERED: Calcium Gluc 4.6 MEQ/10 ML (100 MG/ML) SLOW IVP PRN (18:45)
[2022-09-26] MEDS ORDERED: Bisacodyl 10 MG SUPP PR PRN (18:45)
[2022-09-26] MEDS ORDERED: diphenhydrAMINE 25 MG CAP PO PRN (18:45)
[2022-09-26] MEDS ORDERED: Magnesium Sulfate 20 gm/500 ml 20 GM/500 ML BAG IVPB SCH (18:45)
[2022-09-26] MEDS ORDERED: Lanolin Ointment 7 GM TUBE TOP PRN (18:45)
[2022-09-26] MEDS ORDERED: Boostrix 0.5 ML (Tdap) VIAL (>/=7 yrs of age) IM ONE (18:45)
[2022-09-26] MEDS ORDERED: hydrALAZINE 20 MG/ML VIAL SLOW IVP PRN ×3 (18:45)
[2022-09-26] MEDS ORDERED: Labetalol HCl 100 MG/20 ML VIAL SLOW IVP PRN ×2 (18:45)
[2022-09-26] MEDS ORDERED: Acetaminophen 325 MG TAB PO PRN (18:45)
[2022-09-26] MEDS ORDERED: Lorazepam 2 MG/ML VIAL SLOW IVP PRN (18:45)
[2022-09-27] MEDS ORDERED: Famotidine/PF 20 mg/2ml Vial SLOW IVP SCH (01:00)
[2022-09-27] MEDS ORDERED: methylPREDNISolone Sod Succ/PF 125 MG/2 ML VIAL IVP SCH (01:00)
[2022-09-27] MEDS ORDERED: diphenhydrAMINE 50 MG/ML VIAL ONE (01:03)
[2022-09-27] MEDS ORDERED: Famotidine/PF 20 mg/2ml Vial ONE (01:04)
[2022-09-27] MEDS ORDERED: methylPREDNISolone Sod Succ 40 MG VIAL IVP SCH (01:15)
[2022-09-27 01:28] LABS: Magnesium 5.6 mg/dL (1.6-2.6)
[2022-09-27] MEDS ORDERED: diphenhydrAMINE 50 MG/ML VIAL IVP ONE (02:00)
[2022-09-27] MEDS ORDERED: Zolpidem Tartrate 5 MG TAB PO PRN (02:15)
[2022-09-27] MEDS: Ketorolac Tromethamine 30 MG/ML VIAL IVP PRN ×2 (05:35→11:30)
[2022-09-27 05:57] LABS: Hemoglobin 9.2 g/dL (12.0-15.5); Mean Corpuscular HGB CONC 31.8 g/dL (32.0-36.0); Mean Corpuscular Hemoglobin 24.7 pg (27.0-33.0); Mean Corpuscular Volume 77.5 fl (81.6-98.3); Mean Platelet Volume 10.5 fl (7.4-10.4); Platelet Count 151 10x3/uL (150-450); RBC Distribution Width 16.5 % (11.5-14.5); Red Blood Cell (RBC) Count 3.73 10x6/uL (3.90-5.03); White Blood Cell (WBC) Count 12.2 10x3/uL (3.5-10.5)
[2022-09-27] MEDS: Enoxaparin Sodium 100 MG/ML SYRINGE SC SCH ×2 (08:24→21:11)
[2022-09-27] MEDS: Sertraline 100 MG TAB PO SCH (08:24)
[2022-09-27] MEDS ORDERED: Iopamidol 370 76% 100 ML VIAL ONE (10:03)
[2022-09-27] MEDS: Docusate 100 MG CAP PO SCH ×3 (14:48→21:11)
[2022-09-27] MEDS: Prenatal Vitamin 1 TAB PO SCH (14:48)
[2022-09-27] MEDS: Ferrous Sulfate 325 MG TAB PO SCH ×3 (14:48→21:11)
[2022-09-27] MEDS: Simethicone Chewable 80 MG TAB PO PRN (15:47)
[2022-09-27] MEDS: HYDROcodone/Acetaminophen 5/325 mg Tablet PO PRN ×2 (15:48→21:11)
[2022-09-27] MEDS: Nitrofurantoin Monohyd/M-Cryst 100 MG CAP PO SCH (21:11)
[2022-09-27] MEDS: Ibuprofen 800 MG TAB PO SCH (21:54)
[2022-09-28] MEDS: HYDROcodone/Acetaminophen 5/325 mg Tablet PO PRN ×5 (01:40→21:14)
[2022-09-28] MEDS: Ibuprofen 800 MG TAB PO SCH ×3 (06:14→22:07)
[2022-09-28] MEDS: Enoxaparin Sodium 100 MG/ML SYRINGE SC SCH ×2 (08:09→21:13)
[2022-09-28] MEDS: Nitrofurantoin Monohyd/M-Cryst 100 MG CAP PO SCH ×2 (08:09→21:13)
[2022-09-28] MEDS: Docusate 100 MG CAP PO SCH ×2 (08:09→21:13)
[2022-09-28] MEDS: Ferrous Sulfate 325 MG TAB PO SCH ×2 (08:09→21:13)
[2022-09-28] MEDS: Prenatal Vitamin 1 TAB PO SCH (08:09)
[2022-09-28] MEDS: Sertraline 100 MG TAB PO SCH ×2 (10:18→12:09)
[2022-09-28] MEDS: Simethicone Chewable 80 MG TAB PO PRN ×2 (14:35→21:18)
[2022-09-28] MEDS ORDERED: Labetalol HCl 100 MG TAB PO SCH ×2 (21:00→22:00)
[2022-09-28] MEDS ORDERED: Labetalol HCl 100 MG/20 ML VIAL SLOW IVP PRN (21:52)
[2022-09-29] MEDS: HYDROcodone/Acetaminophen 5/325 mg Tablet PO PRN ×5 (03:12→20:52)
[2022-09-29] MEDS: Ibuprofen 800 MG TAB PO SCH ×3 (05:27→21:01)
[2022-09-29] MEDS: Labetalol HCl 200 MG TAB PO SCH ×3 (07:56→21:04)
[2022-09-29] MEDS: Docusate 100 MG CAP PO SCH ×2 (07:57→21:01)
[2022-09-29] MEDS: Ferrous Sulfate 325 MG TAB PO SCH ×2 (07:57→21:01)
[2022-09-29] MEDS: Nitrofurantoin Monohyd/M-Cryst 100 MG CAP PO SCH ×2 (07:57→21:01)
[2022-09-29] MEDS: Prenatal Vitamin 1 TAB PO SCH (07:57)
[2022-09-29] MEDS: Enoxaparin Sodium 100 MG/ML SYRINGE SC SCH ×2 (07:58→21:14)
[2022-09-29] MEDS: Sertraline 100 MG TAB PO SCH (11:41)
[2022-09-30] MEDS: HYDROcodone/Acetaminophen 5/325 mg Tablet PO PRN ×2 (03:33→10:15)
[2022-09-30] MEDS: Ibuprofen 800 MG TAB PO SCH (05:10)
[2022-09-30 08:41] VITALS: BP 130/67; TEMP 97.9
[2022-09-30] MEDS: Enoxaparin Sodium 100 MG/ML SYRINGE SC SCH (10:13)
[2022-09-30] MEDS: Ferrous Sulfate 325 MG TAB PO SCH (10:13)
[2022-09-30] MEDS: Docusate 100 MG CAP PO SCH (10:14)
[2022-09-30] MEDS: Labetalol HCl 200 MG TAB PO SCH (10:14)
[2022-09-30] MEDS: Nitrofurantoin Monohyd/M-Cryst 100 MG CAP PO SCH (10:14)
[2022-09-30] MEDS: Prenatal Vitamin 1 TAB PO SCH (10:14)
== END 2022-09-30 11:55 | disposition home or self-care (01) | DRG 787 ==
LOC: UNDOADMIN 12:31 → CSHLD 12:31 → CSHPP 09-27 15:12
PROVIDERS: ADMIT Student in an Organized Health Care Education/Training Program; ATTEND Student in an Organized Health Care Education/Training Program
PROC: 10D00Z1 Extraction of Products of Conception, Low, Open Approach (ICD-10-PCS; principal; 2022-09-26)
DX: O14.14 Severe pre-eclampsia complicating childbirth (principal); I82.721 Chronic embolism and thrombosis of deep veins of right upper extremity; N39.0 Urinary tract infection, site not specified; Z3A.34 34 weeks gestation of pregnancy; Z37.0 Single live birth; O40.3XX2 Polyhydramnios, third trimester, fetus 2; O30.043 Twin pregnancy, dichorionic/diamniotic, third trimester; Z37.2 Twins, both liveborn; D50.9 Iron deficiency anemia, unspecified; O99.02 Anemia complicating childbirth; O34.211 Maternal care for low transverse scar from previous cesarean delivery; F32.A Depression, unspecified; O99.345 Other mental disorders complicating the puerperium; F41.9 Anxiety disorder, unspecified; O87.1 Deep phlebothrombosis in the puerperium; Z79.01 Long term (current) use of anticoagulants; Z87.442 Personal history of urinary calculi; Z79.899 Other long term (current) drug therapy; Z88.2 Allergy status to sulfonamides; Z91.09 Other allergy status, other than to drugs and biological substances; Z88.6 Allergy status to analgesic agent; Z88.8 Allergy status to other drugs, medicaments and biological substances; Z91.040 Latex allergy status; O86.20 Urinary tract infection following delivery, unspecified
CPT/HCPCS: 36415; 51702; 71275; 80053; 81001; 83735; 84156; 85027; 85610; 85730; 86780; 86850; 86900; 86901; 87077; 87086; 87186; 87340; 88307; 96372; 99283; J0360; J0696; J1100; J1200; J1644; J1650; J1885; J2210; J2274; J2370; J2405; J2590; J2920; J3010; J3475; Q9967; S0028

== ENCOUNTER 2023-07-03 19:30 | Emergency (ER) | payer BC ==
[2023-07-03 20:00] LABS: Bilirubin Neg (Negative); Blood, Urine 150 (Negative); Clarity Slightly Cloudy (Clear); Glucose, Urine (Dipstick) Normal (Negative); Ketone, Urine Negative (Negative); Leukocyte 500 (Negative); Nitrite Negative (Negative); Protein, Urine (Dipstick) Negative (Neg-Trace); Specific Gravity, Urine 1.015 (1.005-1.030); Urobilinogen Normal mg/dL (Less than 2); pH, Urine 6.5 (5.0-9.0)
[2023-07-03 20:06] LABS: CAUTI Indications for Culture Pelvic or flank pain
[2023-07-03 20:09] LABS: Bacteria/HPF Rare-Few HPF (None Seen)
[2023-07-03 20:10] LABS: Urine Culture Reflex Yes Yes
[2023-07-03 21:44] LABS: Pregnancy Test - Urine (BHCG) Negative (Negative); Pregu Control Background? CLEAR/WHITE (CLR/WHITE); Pregu Control Bar Appear? YES (CONTROL BAR); Specific Gravity 1.015 (1.002-1.036)
[2023-07-03 22:22] LABS: #Basophils 0.1 10x3/uL (0.0-0.2); #Eosinphils 0.2 10x3/uL (0.0-0.5); #Monocytes 0.5 10x3/uL (0.0-1.1); #Neutrophils 3.5 10x3/uL (1.5-8.4); %Basophils 0.7 % (0.0-2.0); %Eosinophils 2.7 % (0.0-6.0); %Lymphocytes 40.2 % (18.0-47.0); %Monocytes 7.6 % (0.0-10.0); %Neutrophils 48.7 % (40.0-75.0); ALT (SGPT) 16 U/L (8-55); AST (SGOT) 14 U/L (5-34); Albumin 4.3 g/dL (3.5-5.0); Alkaline Phosphatase 72 U/L (40-110); Anion Gap 10 mmol/L (10-20); BUN (Urea Nitrogen) 16 mg/dL (7.0-18.7); Bilirubin, Total 0.2 mg/dL (0.2-1.2); Calc. Creatinine Clearance 0 mL/min (70-130); Calcium 9.3 mg/dL (7.8-10.44); Carbon Dioxide 26 mmol/L (22-29); Chloride 106 mmol/L (98-107); Estimated GFR 117; Globulin 3.3 g/dL (2.4-3.5); Glucose 89 mg/dL (70-105); Hematocrit 36.8 % (34.9-44.5); Hemoglobin 11.1 g/dL (12.0-15.5); Mean Corpuscular HGB CONC 30.2 g/dL (32.0-36.0); Mean Corpuscular Hemoglobin 22.5 pg (27.0-33.0); Mean Corpuscular Volume 74.6 fl (81.6-98.3); Mean Platelet Volume 9.7 fl (7.4-10.4); Platelet Count 284 10x3/uL (150-450); Potassium 4.2 mmol/L (3.5-5.1); Protein, Total 7.6 g/dL (6.0-8.3); RBC Distribution Width 14.9 % (11.5-14.5); Red Blood Cell (RBC) Count 4.93 10x6/uL (3.90-5.03); Sodium 138 mmol/L (136-145); White Blood Cell (WBC) Count 7.1 10x3/uL (3.5-10.5)
[2023-07-03 23:07] LABS: Anisocytosis SLIGHT = 6-15 cells (100X) (0-5/hpf); Microcytosis SLIGHT = 6-15 cells (100X) (0-5/hpf); Platelet Adequacy Comment Appears Adequate
== END 2023-07-03 23:08 | disposition home or self-care (01) ==
LOC: CSHERS 19:30
DX: N39.0 Urinary tract infection, site not specified (principal)
CPT/HCPCS: 36415; 74176; 80053; 81001; 81025; 85025; 87077; 87086